=== PATIENT | male | born 1995 | race African-American/Black ===

== ENCOUNTER 2020-09-12 14:34 | Emergency (ER) | payer OTHER ==
[~2020-09-12] VITALS: Ht 180.3 cm; Wt 113.6 kg
[2020-09-12 15:32] LABS: BASO # 0.1 10^3/uL (0.0-0.2); BASO % 0.8 % (0.0-1.0); EOS # 0.2 10^3/uL (0.0-0.5); EOS % 2.8 % (0.0-3.0); HEMATOCRIT 49.6 % (42.0-52.0); HEMOGLOBIN 16.2 g/dl (13.5-17.5); LYMPH # 1.8 10^3/uL (1.5-5.0); LYMPH % 30.6 % (24.0-44.0); MEAN CORPUSCULAR HEMOGLOBIN 28.4 pg (27.0-33.0); MEAN CORPUSCULAR HGB CONC 32.7 g/dl (32.0-36.5); MEAN CORPUSCULAR VOLUME 86.9 fl (80.0-96.0); MONO # 0.6 10^3/uL (0.0-0.8); MONO % 10.6 % (2.0-8.0); NEUTROPHILS # 3.3 10^3/uL (1.5-8.5); PLATELET COUNT, AUTOMATED 227 10^3/uL (150-450); RED BLOOD COUNT 5.71 10^6/uL (4.30-6.10)
[2020-09-12 16:04] LABS: ALBUMIN 4.2 GM/DL (3.2-5.2); ALT/SGPT 25 U/L (12-78); AMYLASE 28 U/L (25-115); BILIRUBIN,DIRECT 0.1 MG/DL (0.0-0.2); BILIRUBIN,TOTAL 0.4 MG/DL (0.2-1.0); BLOOD UREA NITROGEN 11 MG/DL (7-18); CALCIUM LEVEL 8.9 MG/DL (8.5-10.1); CARBON DIOXIDE LEVEL 29 MEQ/L (21-32); CHLORIDE LEVEL 107 MEQ/L (98-107); CREATININE FOR GFR 1.32 MG/DL (0.70-1.30); GLOMERULAR FILTRATION RATE > 60.0 (>60); GLUCOSE, FASTING 86 MG/DL (70-100); LIPASE 84 U/L (73-393); SODIUM LEVEL 141 MEQ/L (136-145); TOTAL PROTEIN 8.1 GM/DL (6.4-8.2)
--- NOTE | 2020-09-12 17:44 | REP ---
INDICATION: RUQ abd tenderness, nausea after fatty foods. COMPARISON: None. TECHNIQUE: Right upper quadrant sonography. FINDINGS: Scanning through the right upper quadrant of the abdomen demonstrates a normal sized, thin-walled gallbladder without evidence of stone or polyp. Common bile duct is normal measuring 0.4 cm in greatest diameter. No focal liver lesion is seen. Liver size is normal. The pancreas is obscured by abdominal gas.. No right renal abnormality is seen. There is no evidence of ascites. The right kidney measures 11.5 x 5.9 x 5.0 cm. IMPRESSION: Negative right upper quadrant sonography. <Electronically signed by Darshan Paniagua > 09/12/20 1552
[2020-09-12 18:24] VITALS: BP 168/83
== END 2020-09-12 18:25 | disposition home or self-care (01) ==
LOC: M ED 14:34
DX: R10.819 Abdominal tenderness, unspecified site (principal); M25.551 Pain in right hip